=== PATIENT | male | born 2000 | race Caucasian/White ===

== ENCOUNTER 2021-01-14 17:46 | Emergency (ER) | payer MEDICAID ==
[~2021-01-14] VITALS: Ht 188 cm; Wt 94.1 kg
[~2021-01-14 17:46] MED LIST: NO HOME MEDS
[2021-01-14 17:49] VITALS: BP 150/69
== END 2021-01-14 19:37 | disposition left against medical advice (07) ==
LOC: ER 17:47
DX: A64 Unspecified sexually transmitted disease (principal); Z53.21 Procedure and treatment not carried out due to patient leaving prior to being seen by health care provider